=== PATIENT | female | born 1955 ===

== ENCOUNTER 2017-09-09 12:44 | Outpatient (CLI) | payer OTHER ==
[~2017-09-09 12:44] MED LIST: HYZAAR 50/12.51 TAB; SYNTHROID75 MCG
== END 2017-09-09 13:04 | disposition home or self-care (01) ==
LOC: LAB 12:44
DX: R10.13 Epigastric pain (principal)

== ENCOUNTER 2017-09-10 09:09 | Outpatient (CLI) | payer OTHER | END 2017-09-10 09:16 | disposition home or self-care (01) | LOC: MRI 09:09 | DX: N28.1 Cyst of kidney, acquired (principal) | CPT/HCPCS: 74181 ==

== ENCOUNTER 2019-11-03 02:31 | Emergency (ER) | payer OTHER ==
[~2019-11-03] VITALS: Ht 149.9 cm; Wt 49.0 kg
[2019-11-03] MEDS ORDERED: LEVSIN/SL0.125 MG SL (06:03)
== END 2019-11-03 06:16 ==
LOC: ER 02:31
DX: R10.11 Right upper quadrant pain (principal)

== ENCOUNTER 2019-12-23 00:03 | Inpatient (IN) | payer OTHER ==
[~2019-12-23] VITALS: Ht 121.9 cm; Wt 49.0 kg
[~2019-12-23 00:03] MED LIST changes: +LEVSIN/SL0.125 MG SL
== END 2020-01-01 13:23 | disposition home or self-care (01) | DRG 417 ==
LOC: ER 00:03 → MEDI 11:07 → SURG 11:07 → MEDI 14:16
PROVIDERS: Surgery; ADMIT Internal Medicine; ATTEND Internal Medicine
PROC: BW40ZZZ Ultrasonography of Abdomen (ICD-10-PCS; 2019-12-23)
PROC: BF13YZZ Fluoroscopy of Gallbladder and Bile Ducts using Other Contrast (ICD-10-PCS; 2019-12-27)
PROC: 0FC98ZZ Extirpation of Matter from Common Bile Duct, Via Natural or Artificial Opening Endoscopic (ICD-10-PCS; 2019-12-27)
PROC: 0FT44ZZ Resection of Gallbladder, Percutaneous Endoscopic Approach (ICD-10-PCS; principal; 2019-12-30 07:00)
DX: K80.42 Calculus of bile duct with acute cholecystitis without obstruction (principal); K85.10 Biliary acute pancreatitis without necrosis or infection; I10 Essential (primary) hypertension; E55.9 Vitamin D deficiency, unspecified; E86.0 Dehydration; E03.9 Hypothyroidism, unspecified; Z20.828 Contact with and (suspected) exposure to other viral communicable diseases

== ENCOUNTER 2020-01-05 04:35 | Inpatient (IN) | payer OTHER ==
[~2020-01-05] VITALS: Ht 162.6 cm; Wt 48.1 kg
[2020-01-08] MEDS ORDERED: ULTRACET PO (09:36)
[2020-01-08] MEDS ORDERED: INTESTINEX680 M1 PO (09:36)
[2020-01-08] MEDS ORDERED: CIPRO500 MG PO (09:37)
[2020-01-08] MEDS ORDERED: PROTONIX40 MG PO (09:37)
[2020-01-08] MEDS ORDERED: FLAGYL500MG PO (09:38)
== END 2020-01-08 11:35 | disposition home or self-care (01) | DRG 862 ==
LOC: ER 04:35 → SURG 22:46 → SEC-K 22:46 → SURG 23:40
PROVIDERS: ADMIT Internal Medicine; ATTEND Internal Medicine
PROC: BW21ZZZ Computerized Tomography (CT Scan) of Abdomen and Pelvis (ICD-10-PCS; principal; 2020-01-05)
PROC: BW40ZZZ Ultrasonography of Abdomen (ICD-10-PCS; 2020-01-05)
DX: T81.43XA Infection following a procedure, organ and space surgical site, initial encounter (principal); K65.1 Peritoneal abscess; E03.9 Hypothyroidism, unspecified; I10 Essential (primary) hypertension; Z20.828 Contact with and (suspected) exposure to other viral communicable diseases

== ENCOUNTER 2022-11-26 19:16 | Emergency (ER) | payer OTHER ==
[~2022-11-26] VITALS: Ht 124.5 cm; Wt 49.9 kg
[~2022-11-26 19:16] MED LIST changes: +CIPRO500 MG PO; +FLAGYL500MG PO; +INTESTINEX680 M1 PO; +PROTONIX40 MG PO; +ULTRACET PO
[2022-11-26] MEDS ORDERED: CIPRO500 MG PO (21:47)
[2022-11-26] MEDS ORDERED: ONDANSETRON ODT8 MG PO (21:47)
[2022-11-26] MEDS ORDERED: PEPCID AC20 MG PO (21:47)
== END 2022-11-26 22:34 | disposition home or self-care (01) ==
LOC: ER 19:16
DX: K52.9 Noninfective gastroenteritis and colitis, unspecified (principal); A08.8 Other specified intestinal infections; I10 Essential (primary) hypertension; E03.8 Other specified hypothyroidism; Z88.0 Allergy status to penicillin; Z88.1 Allergy status to other antibiotic agents

== ENCOUNTER 2023-01-19 11:02 | Outpatient (CLI) | payer OTHER ==
[~2023-01-19 11:02] MED LIST changes: +ONDANSETRON ODT8 MG PO; +PEPCID AC20 MG PO
== END 2023-01-19 11:09 | disposition home or self-care (01) ==
LOC: SONOGRAMA 11:02
PROVIDERS: ATTEND General Practice
DX: E04.0 Nontoxic diffuse goiter (principal); E06.3 Autoimmune thyroiditis; E03.8 Other specified hypothyroidism

== ENCOUNTER 2024-02-09 10:50 | Outpatient (CLI) | payer OTHER | END 2024-02-09 10:53 | disposition home or self-care (01) | LOC: MAMO-SONO 10:50 | DX: Z12.31 Encounter for screening mammogram for malignant neoplasm of breast (principal) ==

== ENCOUNTER 2024-07-04 08:45 | Outpatient (CLI) | payer OTHER | END 2024-07-04 08:53 | disposition home or self-care (01) | LOC: MRI 08:45 | PROVIDERS: ATTEND Internal Medicine Gastroenterology | DX: K80.20 Calculus of gallbladder without cholecystitis without obstruction (principal) | CPT/HCPCS: 74181 ==

== ENCOUNTER 2024-08-02 12:15 | Outpatient (CLI) | payer OTHER | END 2024-08-02 12:23 | disposition home or self-care (01) | LOC: NUCLEAR 12:15 | PROVIDERS: ATTEND General Practice | DX: M81.0 Age-related osteoporosis without current pathological fracture (principal); E06.3 Autoimmune thyroiditis; E03.8 Other specified hypothyroidism; E78.2 Mixed hyperlipidemia; I11.9 Hypertensive heart disease without heart failure; R73.01 Impaired fasting glucose; Z13.1 Encounter for screening for diabetes mellitus ==

== ENCOUNTER 2024-09-01 11:25 | Outpatient (CLI) | payer OTHER | END 2024-09-01 11:26 | disposition home or self-care (01) | LOC: RAD 11:25 | DX: M25.50 Pain in unspecified joint (principal) ==